=== PATIENT | male | born 2000 | race Caucasian/White ===

== ENCOUNTER 2022-05-25 12:09 | Emergency (ER) | payer MEDICAID, SELFPAY ==
[2022-05-25 12:25] VITALS: BP 121/70; PULSE 58; RESP 18; TEMP 36.7; O2SAT 97; BMI 28.1
== END 2022-05-25 16:54 | disposition left against medical advice (07) ==
PROVIDERS: Emergency Provider Emergency Medicine
DX: J01.90 Acute sinusitis, unspecified (principal)
CPT/HCPCS: 99281